=== PATIENT | female | born 1995 | race Caucasian/White ===

== ENCOUNTER 2023-03-04 15:34 | Outpatient (OUT) | payer OTHER, SELFPAY ==
--- NOTE | 2023-03-04 10:57 | US_ITS ---
[address] [address] Patient Name: AZAR EVANS MRN: [id number] date: 1995 Sex: F Assigned Patient Location: US Current Patient Location: US Accession/Order Number: [id number] Exam Date: 03/04/2023 10:58 Report Date: 03/04/2023 12:43 At the request of: RAHUL MAE Procedure: US OB >= 14 weeks Fetus EXAMINATION: US OB >= 14 weeks Fetus HISTORY: MISSED MENSES COMPARISON: No relevant comparison available. TECHNIQUE: Transabdominal sonographic examination was performed for obstetrical and evaluation. FINDINGS: Number: 1 Heart Rate: 147.0 bpm H.B. /min Amniotic Fluid Volume: Subjectively normal Placental Location: Anterior Cervix Length: Not measured BIOMETRY: BPD: 6.4 cm 25 weeks 5 days , 25 weeks 5 days HC: 24.4 cm 26 weeks 3 days, 26 weeks 3 days AC: 21.6 cm 26 weeks 1 days, 26 weeks 1 day FL: 4.9 cm 26 weeks 4 days, 26 weeks 4 days EFW: 912.8 grams 2 lbs. 0 oz.; FL/AC: 22.7 FL/BPD: 77.1 HC/AC: 1.1 GESTATIONAL AGE: Age by EDC: Unknown SABRINA by EDC: Unknown Age by current US: 26 weeks 2 days SABRINA by current US: 06/08/2023 US/US OB >= 14 weeks Fetus IMPRESSION: Andrade intrauterine gestation measuring 26 weeks 2 days *Reference: [facility] Practice Guideline for the performance of Obstetric Ultrasound Examinations, January 16, 2007. Electronically authenticated by: ARVIN BECERRA Date: 03/04/2023 12:43
== END 2023-03-04 15:35 | disposition home or self-care (01) ==
LOC: US 03-07 15:34
PROVIDERS: Visit Provider Obstetrics & Gynecology
DX: Z34.92 Encounter for supervision of normal pregnancy, unspecified, second trimester (principal)
CPT/HCPCS: 76815; 76817

== ENCOUNTER 2023-03-21 10:05 | Outpatient (OUT) | payer OTHER, SELFPAY ==
[2023-03-21 10:50] LABS: Basophils Absolute Auto 0.1 10^3/uL (0.0-0.1); Basophils Percent Auto 0.6 % (0.2-2.0); Eosinophils Absolute Auto 0.2 10^3/uL (0.0-0.7); Eosinophils Percent Auto 2.5 % (0.9-7.0); Hematocrit 28.4 % (36.0-48.0); Hemoglobin 8.9 g/dL (12.0-16.0); Immature Granulocytes Abs Auto 0.09 10^3/uL (0.00-0.03); Immature Granulocytes Pct Auto 1.1 % (0.0-0.5); Lymphocytes Absolute Auto 1.5 10^3/uL (1.2-3.8); Mean Corpuscular HGB Conc 31.3 g/dL (29.9-35.2); Mean Corpuscular Hemoglobin 26.3 pg (26.7-34.0); Mean Platelet Volume 10.1 fL (9.5-13.5); Monocytes Absolute Auto 0.7 10^3/uL (0.3-0.8); Monocytes Percent Auto 7.8 % (1.7-12.0); Platelet Count 304 10^3/uL (150-450); Red Blood Count 3.38 10^6/uL (4.20-5.40); Red Cell Distribution Width 13.1 % (11.0-15.0); White Blood Count 8.6 10^3/uL (4.0-11.0)
[2023-03-21 11:23] LABS: Estimated Average Glucose 100 mg/dL; Glycohemoglobin A1C 5.1 % (4.5-6.2)
[2023-03-21 11:29] LABS: Thyroid Stimulating Hormone 4.453 uIU/mL (0.358-3.740)
[2023-03-21 16:06] LABS: HIV Antigen NON-REACTIVE (NONREACTIVE)
[2023-03-22 06:08] LABS: HBsAg Screen Negative (Negative); HCV Ab Non Reactive (Non Reactive); Rubella Antibodies, IgG <0.90 index (Immune >0.99)
[2023-03-22 14:09] LABS: Rapid Plasma Reagin, Quant Non Reactive titer (NonRea<1:1)
== END 2023-03-21 10:06 | disposition home or self-care (01) ==
LOC: LAB 10:15
PROVIDERS: Visit Provider Obstetrics & Gynecology
DX: N92.6 Irregular menstruation, unspecified (principal)
CPT/HCPCS: 36415; 83036; 84443; 85025; 86592; 86762; 86803; 86850; 86900; 86901; 87086; 87340; 87389

== ENCOUNTER 2023-03-21 16:35 | Outpatient (OUT) | payer OTHER, SELFPAY ==
--- NOTE | 2023-03-21 | US_ITS ---
[address] [address] Patient Name: AZAR EVANS MRN: [id number] date: 1995 Sex: F Assigned Patient Location: [facility] Current Patient Location: Accession/Order Number: [id number] Exam Date: 03/21/2023 16:45 Report Date: 03/22/2023 22:26 At the request of: RAHUL MAE Procedure: US OB anatomy EXAMINATION: US OB anatomy, US OB cervical length HISTORY: SECOND TRIMESTER Z34.92 COMPARISON: Ultrasound OB greater than 14 weeks 03/04/2023 TECHNIQUE: Transabdominal sonographic examination was performed for obstetrical and evaluation. FINDINGS: Number: 1 Heart Rate: 143.6 bpm H.B. /min Amniotic Fluid Volume: Placental Location: Anterior-fundal; lower margin is 5.5 cm from os. Cervix Length: 5.5 cm; closed. ANATOMY: Normal Structures -cerebellum, choroid plexus, cisterna magna, lateral cerebral ventricles, orbits, midline falx, hard palate, four-chamber heart, RVOT, LVOT, stomach, kidneys, bladder, umbilical cord insertion into abdomen, three-vessel cord, cervical spine, thoracic spine, lumbar spine, sacral spine, right upper extremity, left upper extremity, right lower extremity, left lower extremity. SUBOPTIMALLY SEEN: None ABNORMALITIES: None BIOMETRY: BPD: 7.1 cm 28 weeks 4 days ; 33% HC: 26.7 cm 29 weeks 0 days; 27% AC: 23.8 cm 28 weeks 1 days; 25% FL: 5.3 cm 28 weeks 2 days ; 24% EFW:1203.3 grams; 23% FL/AC: 22.4 FL/BPD: 75.0 HC/AC: 1.1 GESTATIONAL AGE: Age by EDC: 28 weeks 5 days SABRINA by EDC: 06/08/2023 Age by current US: 28 weeks 4 days SABRINA by current US: 06/09/2023 US/US OB anatomy IMPRESSION: 1. Single live intrauterine with growth detailed above. Electronically authenticated by: BABAK COTO Date: 03/22/2023 22:26
--- NOTE | 2023-03-21 | US_ITS ---
[address] [address] Patient Name: AZAR EVANS MRN: [id number] date: 1995 Sex: F Assigned Patient Location: [facility] Current Patient Location: Accession/Order Number: [id number] Exam Date: 03/21/2023 16:45 Report Date: 03/22/2023 22:26 At the request of: RAHUL MAE Procedure: US OB cervical length EXAMINATION: US OB anatomy, US OB cervical length HISTORY: SECOND TRIMESTER Z34.92 COMPARISON: Ultrasound OB greater than 14 weeks 03/04/2023 TECHNIQUE: Transabdominal sonographic examination was performed for obstetrical and evaluation. FINDINGS: Number: 1 Heart Rate: 143.6 bpm H.B. /min Amniotic Fluid Volume: Placental Location: Anterior-fundal; lower margin is 5.5 cm from os. Cervix Length: 5.5 cm; closed. ANATOMY: Normal Structures -cerebellum, choroid plexus, cisterna magna, lateral cerebral ventricles, orbits, midline falx, hard palate, four-chamber heart, RVOT, LVOT, stomach, kidneys, bladder, umbilical cord insertion into abdomen, three-vessel cord, cervical spine, thoracic spine, lumbar spine, sacral spine, right upper extremity, left upper extremity, right lower extremity, left lower extremity. SUBOPTIMALLY SEEN: None ABNORMALITIES: None BIOMETRY: BPD: 7.1 cm 28 weeks 4 days ; 33% HC: 26.7 cm 29 weeks 0 days; 27% AC: 23.8 cm 28 weeks 1 days; 25% FL: 5.3 cm 28 weeks 2 days ; 24% EFW:1203.3 grams; 23% FL/AC: 22.4 FL/BPD: 75.0 HC/AC: 1.1 GESTATIONAL AGE: Age by EDC: 28 weeks 5 days SABRINA by EDC: 06/08/2023 Age by current US: 28 weeks 4 days SABRINA by current US: 06/09/2023 US/US OB cervical length IMPRESSION: 1. Single live intrauterine with growth detailed above. Electronically authenticated by: BABAK COTO Date: 03/22/2023 22:26
== END 2023-03-21 16:36 | disposition home or self-care (01) ==
PROVIDERS: Visit Provider Obstetrics & Gynecology
DX: Z34.93 Encounter for supervision of normal pregnancy, unspecified, third trimester (principal); N92.6 Irregular menstruation, unspecified; Z12.4 Encounter for screening for malignant neoplasm of cervix
CPT/HCPCS: 36415; 76805; 76817; 83036; 84443; 85025; 86592; 86762; 86803; 86850; 86900; 86901; 87086; 87340; 87389; G0145

== ENCOUNTER 2023-03-21 22:08 | Outpatient (OUT) | payer OTHER, SELFPAY ==
[2023-03-24 19:07] LABS: Age Gdln ACOG Testing Note (.); IGP, rfx Aptima HPV ASCU Note (.)
== END 2023-03-21 22:09 | disposition home or self-care (01) ==
LOC: LAB 22:10
PROVIDERS: Visit Provider Obstetrics & Gynecology
DX: Z12.4 Encounter for screening for malignant neoplasm of cervix (principal)
CPT/HCPCS: G0145

== ENCOUNTER 2023-03-30 10:11 | Outpatient (OUT) | payer OTHER, SELFPAY ==
[2023-03-30 10:36] LABS: Basophils Percent Auto 0.5 % (0.2-2.0); Eosinophils Absolute Auto 0.2 10^3/uL (0.0-0.7); Eosinophils Percent Auto 2.3 % (0.9-7.0); Hematocrit 30.4 % (36.0-48.0); Hemoglobin 9.3 g/dL (12.0-16.0); Immature Granulocytes Abs Auto 0.21 10^3/uL (0.00-0.03); Immature Granulocytes Pct Auto 2.4 % (0.0-0.5); Lymphocytes Absolute Auto 1.6 10^3/uL (1.2-3.8); Lymphocytes Percent Auto 18.3 % (20.5-60.0); Mean Corpuscular HGB Conc 30.6 g/dL (29.9-35.2); Mean Corpuscular Hemoglobin 26.3 pg (26.7-34.0); Mean Corpuscular Volume 85.9 fL (81.0-99.0); Mean Platelet Volume 9.9 fL (9.5-13.5); Monocytes Absolute Auto 0.6 10^3/uL (0.3-0.8); Monocytes Percent Auto 6.8 % (1.7-12.0); Neutrophils Absolute Auto 6.1 10^3/uL (1.4-6.5); Neutrophils Percent Auto 69.7 % (43.0-75.0); Platelet Count 314 10^3/uL (150-450); Red Blood Count 3.54 10^6/uL (4.20-5.40); Red Cell Distribution Width 13.8 % (11.0-15.0); White Blood Count 8.7 10^3/uL (4.0-11.0)
== END 2023-03-30 10:12 | disposition home or self-care (01) ==
PROVIDERS: Visit Provider Obstetrics & Gynecology
DX: R79.89 Other specified abnormal findings of blood chemistry (principal)
CPT/HCPCS: 36415; 85025

== ENCOUNTER 2023-04-05 09:25 | Outpatient (OUT) | payer OTHER, SELFPAY ==
[2023-04-05 11:03] LABS: Glucose 1 Hour 121 mg/dL
== END 2023-04-05 09:26 | disposition home or self-care (01) ==
LOC: LAB 09:26
PROVIDERS: Visit Provider Obstetrics & Gynecology
DX: R79.89 Other specified abnormal findings of blood chemistry (principal); Z34.90 Encounter for supervision of normal pregnancy, unspecified, unspecified trimester
CPT/HCPCS: 36415; 82950

== ENCOUNTER 2023-04-25 09:22 | Outpatient (OUT) | payer OTHER, SELFPAY ==
--- OUTSIDE RECORDS SUMMARY | 2023-04-25 09:27 | XMS_ITS | CCD ---
Author Name Unknown Address [address] [facility] [address] [place] [address] Organization [facility] Care Team Providers Care Elevator Operator Name Role Phone RAHUL MAE Attending Unavailable Encounters Encounter Date Encounter Type Care Provider Facility Start: 03-21-2023 End: 03-21-2023 ambulatory RAHUL TU Not Available Start: 03-04-2023 End: 03-04-2023 ambulatory RAHUL TU Not Available Payers Date Payer Category Payer Medicaid [id number] 1995 Unknown [id number] 1995 Unknown [id number] [id number] Summary Purpose Family History No Family History Records Found Advance Directives No Advanced Directives Records Found Additional Source Comments INFORMATION SOURCE (unrecogn ized section and content) DATE CREATED AUTHOR 03/23/2023 [facility] Special[facility] EPIC FOR RECORDS PERTAINING TO PATIENTS [...] BE BASED ON THE PRIMARY CLINICAL RECORDS. [employer] provides no warranty or guarantee of the accuracy or completeness of information in this document.
--- NOTE | 2023-04-25 09:28 | US_ITS ---
[address] [address] Patient Name: AZAR EVANS MRN: [id number] date: 1995 Sex: F Assigned Patient Location: US Current Patient Location: US Accession/Order Number: [id number] Exam Date: 04/25/2023 09:35 Report Date: 04/25/2023 10:51 At the request of: JESSICA FLEMING Procedure: US OB growth EXAMINATION: US OB growth HISTORY: excessive growth affecting O36.60 COMPARISON: No relevant comparison available. FINDINGS: Heart Rate: 149.2 bpm Amniotic Fluid Volume: 19.0 cm Number: 1.0 Position: Cephalic presentation, longitudinal lie Maximum Vertical Pocket: 5.7 cm cm 7.2 cm cm 0.5 cm cm 5.7 cm cm BIOMETRY: BPD: 8.0 cm cm; 32 weeks 2 days; 12% HC: 30.4 cmcm; 33 weeks 6 days , 17% AC: 31.0 cm cm; 34 weeks 6 days, 84% FL: 6.6 cm cm; 34 weeks 1 days; 52.1 % % EFW: 2405.1 grams, 5 lbs. 5 oz., 62% FL/AC: 21.4 FL/BPD: 82.5 HC/AC: 1.0 GESTATIONAL AGE: Age by EDC: 33 weeks 5 days SABRINA by EDC: 06/08/2023 Age by US: 33 weeks 6 days SABRINA by US: 06/07/2023 US/US OB growth IMPRESSION: Normal interval growth Electronically authenticated by: ARVIN BECERRA Date: 04/25/2023 10:51
== END 2023-04-25 09:23 | disposition home or self-care (01) ==
LOC: US 09:24
PROVIDERS: Visit Provider Physician Assistant
DX: O36.63X0 Maternal care for excessive fetal growth, third trimester, not applicable or unspecified (principal); Z3A.33 33 weeks gestation of pregnancy; O99.013 Anemia complicating pregnancy, third trimester; D64.9 Anemia, unspecified
CPT/HCPCS: 76816; 96365; J1756

== ENCOUNTER 2023-05-02 07:31 | Outpatient (RCR) | payer OTHER, SELFPAY ==
--- OUTSIDE RECORDS SUMMARY | 2023-04-06 11:23 | XMS_ITS | CCD ---
Author Name Unknown Address [address] [facility] [address] [place] [address] Organization [facility] Care Team Providers Care Cargo Surveyor Name Role Phone RAHUL MAE Attending Unavailable Encounters Encounter Date Encounter Type Care Provider Facility Start: 03-21-2023 End: 03-21-2023 ambulatory RAHUL TU Not Available Start: 03-04-2023 End: 03-04-2023 ambulatory RAHUL TU Not Available Payers Date Payer Category Payer Medicaid [id number] 1995 Unknown [id number] 1995 Unknown [id number] [id number] Summary Purpose Family History No Family History Records Found Advance Directives No Advanced Directives Records Found Additional Source Comments INFORMATION SOURCE (unrecogn ized section and content) DATE CREATED AUTHOR 03/23/2023 [facility] EPIC FOR RECORDS PERTAINING TO PATIENTS WHO ARE OR HAVE BEEN ENROLLED IN A CHEMICAL DEPENDENCY/SUBSTANCEABUSE PROGRAM, SOME INFORMATION MAY BE OMITTED. This clinical summary was aggregated from multiple sources. Caution should be exercised in using it in the provision of clinical care. This summary normalizes information from multiple sources, and as a consequence, information in this document may materially change the coding, format and clinical context of patient data. In addition, data may be omitted in some cases. CLINICAL DECISIONS SHOULD BE BASED ON THE PRIMARY CLINICAL RECORDS. [employer] provides no warranty or guarantee of the accuracy or completeness of information in this document.
--- OUTSIDE RECORDS SUMMARY | 2023-04-13 16:09 | XMS_ITS | CCD ---
Author Name Unknown Address [address] [facility] [address] [place] [address] Organization [facility] Care Team Providers Care Line Haul Driver Name Role Phone RAHUL MAE Attending Unavailable Encounters Encounter Date Encounter Type Care Provider Facility Start: 03-21-2023 End: 03-21-2023 ambulatory RAHUL TU Not Available Start: 03-04-2023 End: 03-04-2023 ambulatory RAHUL TU Not Available Payers Date Payer Category Payer Medicaid [id number] 1995 Unknown [id number] 1995 Unknown [id number] [id number] Summary Purpose Family History No Family History Records Found Advance Directives No Advanced Directives Records Found Additional Source Comments INFORMATION SOURCE (unrecogn ized section and content) DATE CREATED AUTHOR 03/23/2023 [facility] EPIC FOR RECORDS PERTAINING TO PATIENTS [...] BE BASED ON THE PRIMARY CLINICAL RECORDS. [employer] provides no warranty or guarantee of the accuracy or completeness of information in this document.
[2023-04-20 09:23] VITALS: BP 99/50; PULSE 88; RESP 16; TEMP 36.4; O2SAT 95
[2023-04-20] MEDS: IRON SUCROSE COMPLEX 100 MG in 0.9 % SODIUM CHLORIDE 100 ML 420 MG IV (09:27)
--- NOTE | 2023-04-20 09:30 | PC.NURSE ---
0900 arrival ambulatory. alert oriented, however apprehensive regarding need for iron. explained anemia and , patient verbalizes understanding. #24 iv initiated left forearm, excellent blood return. 0920 See mar for infusion, significant other at bedside.
[2023-04-20 09:35] VITALS: BP 96/63; PULSE 85; RESP 18
--- NOTE | 2023-04-20 09:52 | PC.NURSE ---
0948 infusion completed, line flushed with NSS. tolerated infusion with out difficulty. IV site dc'd, cotton ball and pressure applied, followed by suman rose after 10 mins. verbalized understanding.0950 released ambulatory with significant other.
[2023-04-22 09:00] VITALS: BP 97/80; PULSE 97; RESP 16; TEMP 36.6; O2SAT 98
[2023-04-22] MEDS: IRON SUCROSE COMPLEX 100 MG in 0.9 % SODIUM CHLORIDE 100 ML 420 MG IV (09:25)
--- NOTE | 2023-04-22 09:49 | PC.NURSE ---
0900 Arrival ambulatory with significant other. IV attempt x3. patient tolerated poorly, #22 inserted racf, excellent blood return noted. 914 see JUN 929 tolerating infusion, initially was light headed with iv starts, bp recheck 95/55 p 81. 0940 iv infusion completed, flushed line with NSS. dc'd iv site from racf, catheter intact. site clear. band aid, cottonball applied, secured with coban. Released ambulatory.
[2023-04-25 10:35] VITALS: BP 103/52; PULSE 80; RESP 18; TEMP 36.7; O2SAT 96
[2023-04-25] MEDS: IRON SUCROSE COMPLEX 200 MG in 0.9 % SODIUM CHLORIDE 100 ML 220 MG IV (11:01)
--- NOTE | 2023-04-25 11:50 | PC.NURSE ---
Patient is here for Venofer infusion, she denies any complaints. She tolerated her IV start well, infusion well without any issues. She was discharged home ambulatory with significant other.
[2023-04-27] MEDS: IRON SUCROSE COMPLEX 100 MG in 0.9 % SODIUM CHLORIDE 100 ML 420 MG IV (09:09)
--- NOTE | 2023-04-27 09:10 | PC.NURSE ---
0850 Arrival ambulatory. Alert oriented. Iv initiated on 2nd attempt, #24 left forearm, tolerated fairly well. significant other with patient.
[2023-04-27 09:12] VITALS: BP 96/60; PULSE 85; RESP 16; TEMP 36.6; O2SAT 98
[2023-04-29] MEDS: IRON SUCROSE COMPLEX 200 MG in 0.9 % SODIUM CHLORIDE 100 ML 220 MG IV (09:00)
[2023-04-29 09:07] VITALS: BP 119/69; PULSE 88; RESP 18; TEMP 36.6; O2SAT 100
--- NOTE | 2023-04-29 09:11 | PC.NURSE ---
0850 Arrival ambulatory, alert oriented, accompanied by significant other. 0855 IV initiated 22 LACF on 1 attempt, excellent blood return, tolerated well. 0900 Infusion initated, eating breakfast. 0915 Tolerating infusion without difficulty
--- NOTE | 2023-04-29 09:41 | PC.NURSE ---
0930 infusion completed. IV dc'd catheter intact, site clear. Released ambulatory
[2023-05-02 08:55] VITALS: BP 93/52; PULSE 107; RESP 16; TEMP 36.8; O2SAT 99
[2023-05-02] MEDS: IRON SUCROSE COMPLEX 200 MG in 0.9 % SODIUM CHLORIDE 100 ML 220 MG IV (09:13)
== END 2023-05-18 23:59 | disposition home or self-care (01) ==
LOC: INF 07:31
PROVIDERS: Visit Provider Obstetrics & Gynecology
DX: O99.019 Anemia complicating pregnancy, unspecified trimester (principal); D64.9 Anemia, unspecified; Z3A.00 Weeks of gestation of pregnancy not specified
CPT/HCPCS: 96365; J1756

== ENCOUNTER 2023-05-07 14:06 | Observation (INO) | payer OTHER, SELFPAY ==
--- OUTSIDE RECORDS SUMMARY | 2023-05-07 14:09 | XMS_ITS | CCD ---
Author Name Unknown Address [address] [place] [address] [address] [place] [address] Organization [facility] Care Team Providers Care Online Marketing Analyst Name Role Phone JESSICA FLEMING Attending Unavailable RAHUL MAE Attending Unavailable JESSICA FLEMING Attending Unavailable Encounters Encounter Date Encounter Type Care Provider Facility Start: 04-25-2023 End: 04-25-2023 ambulatory JESSICA FLEMING Not Available Start: 04-04-2023 End: 04-04-2023 ambulatory JESSICA FLEMING Not Available Start: 03-21-2023 End: 03-21-2023 ambulatory RAHUL MAE Not Available Start: 03-04-2023 End: 03-04-2023 ambulatory JESSICA FLEMING Not Available Payers Date Payer Category Payer Medicaid [id number] 1995 Unknown [id number] 2.16.840 .[id number] 1995 Unknown [id number] 2.16.840 .[id number] 1995 Unknown [id number] 2.16.840 .[id number] 1995 Unknown [id number] 2.16.840 .[id number] Summary Purpose Family History No Family History Records Found Advance Directives No Advanced Directives Records Found Additional Source Comments INFORMATION SOURCE (unrecogn ized section and content) DATE CREATED AUTHOR 04/25/2023 [facility] EPIC FOR RECORDS PERTAINING TO PATIENTS [...] BE BASED ON THE PRIMARY CLINICAL RECORDS. [facility] [employer] [facility]. provides no warranty or guarantee of the accuracy or completeness of information in this document.
[2023-05-07 14:52] LABS: Bilirubin Urine NEGATIVE (NEGATIVE); Blood Urine NEGATIVE (NEGATIVE); Clarity Urine CLEAR (CLEAR); Color Urine LT. YELLOW (YELLOW); Glucose Urine UA NEGATIVE (NEGATIVE); Ketones Urine NEGATIVE (NEGATIVE); Leukocyte Esterase Urine NEGATIVE (NEGATIVE); Nitrite Urine NEGATIVE (NEGATIVE); Protein Urine NEGATIVE (NEG/TRACE); Specific Gravity Urine <=1.005 (1.005-1.025); Urobilinogen Urine 0.2 EU/dL (0.2-1.0)
[2023-05-07 14:55] LABS: Urine Microscopic Indicated NO
== END 2023-05-07 17:03 | disposition home or self-care (01) ==
PROVIDERS: Admitting Provider Obstetrics & Gynecology; Visit Provider Obstetrics & Gynecology
DX: O26.893 Other specified pregnancy related conditions, third trimester (principal); M54.50 Low back pain, unspecified; Z3A.35 35 weeks gestation of pregnancy
CPT/HCPCS: 81003; G0378; G0379

== ENCOUNTER 2023-05-09 10:49 | Outpatient (OUT) | payer OTHER, SELFPAY ==
--- OUTSIDE RECORDS SUMMARY | 2023-05-09 10:53 | XMS_ITS | CCD ---
Author Name Unknown Address [address] [place] [address] [place] [address] Organization [facility] Care Team Providers Care Performance Improvement Manager Name Role Phone JESSICA FLEMING Attending Unavailable [...] Available Payers Date Payer Category Payer Medicaid [id number] 1995 Unknown [id number] 2.16.840 .[id number] 1995 Unknown [id number] 2.16.840 .[id number] 1995 Unknown [id number] 2.16.840 .[id number] 1995 Unknown [id number] 2.16.840 .[id number] Summary Purpose Family History No Family History Records Found Advance Directives No Advanced Directives Records Found Additional Source Comments INFORMATION SOURCE (unrecogn ized section and content) DATE CREATED AUTHOR 04/25/2023 [facility] EPIC FOR RECORDS PERTAINING [...] BE BASED ON THE PRIMARY CLINICAL RECORDS. [facility] [employer] [facility]. provides no warranty or guarantee of the accuracy or completeness of information in this document.
[2023-05-09 11:03] LABS: Basophils Percent Auto 0.5 % (0.2-2.0); Eosinophils Absolute Auto 0.1 10^3/uL (0.0-0.7); Eosinophils Percent Auto 1.4 % (0.9-7.0); Hematocrit 32.9 % (36.0-48.0); Hemoglobin 10.2 g/dL (12.0-16.0); Immature Granulocytes Abs Auto 0.03 10^3/uL (0.00-0.03); Immature Granulocytes Pct Auto 0.5 % (0.0-0.5); Lymphocytes Absolute Auto 1.4 10^3/uL (1.2-3.8); Lymphocytes Percent Auto 24.2 % (20.5-60.0); Mean Corpuscular Hemoglobin 26.3 pg (26.7-34.0); Mean Corpuscular Volume 84.8 fL (81.0-99.0); Monocytes Absolute Auto 0.6 10^3/uL (0.3-0.8); Monocytes Percent Auto 9.9 % (1.7-12.0); Neutrophils Absolute Auto 3.6 10^3/uL (1.4-6.5); Neutrophils Percent Auto 63.5 % (43.0-75.0); Platelet Count 268 10^3/uL (150-450); Red Blood Count 3.88 10^6/uL (4.20-5.40); Red Cell Distribution Width 20.2 % (11.0-15.0); White Blood Count 5.6 10^3/uL (4.0-11.0)
== END 2023-05-09 10:50 | disposition home or self-care (01) ==
LOC: LAB 10:50
PROVIDERS: Visit Provider Physician Assistant
DX: Z34.93 Encounter for supervision of normal pregnancy, unspecified, third trimester (principal); R79.89 Other specified abnormal findings of blood chemistry
CPT/HCPCS: 36415; 85025

== ENCOUNTER 2023-05-16 21:09 | Outpatient (REF) | payer OTHER, SELFPAY ==
--- OUTSIDE RECORDS SUMMARY | 2023-05-16 21:12 | XMS_ITS | CCD ---
Author Name Unknown Address [address] [place] [address] [place] [address] Organization [facility] Care Team Providers Care Lead Javascript Developer Name Role Phone LONNIE, JESSICA Attending Unavailable LONNIE, JESSICA Attending Unavailable TU, RAHUL Attending Unavailable TU, RAHUL Attending Unavailable LONNIE, JESSICA Attending Unavailable Encounters Encounter Date Encounter Type Care Provider Facility Start: 05-16-2023 End: 05-16-2023 ambulatory RAHUL TU Not Available Start: 05-09-2023 End: 05-09-2023 ambulatory JESSICA LONNIE Not Available Start: 04-25-2023 End: 04-25-2023 ambulatory JESSICA LONNIE Not Available Start: 04-04-2023 End: 04-04-2023 ambulatory JESSICA LONNIE Not Available Start: 03-21-2023 End: 03-21-2023 ambulatory RAHUL TU Not Available Start: 03-04-2023 End: 03-04-2023 ambulatory JESSICA LONNIE Not Available Payers Date Payer Category Payer Unknown [id number] 1995 Unknown [id number] 2.16.84 [id number] 1995 Unknown [id number] 2.16.84 [id number] 1995 Unknown [id number] 2.16.840 .[id number] 1995 Unknown [id number] 2.16.840 .[id number] 1995 Unknown [id number] 2.16.840 .1.307005.3.579.2.1259 1995 Unknown [id number] 2.16.840 .[id number] Summary Purpose Family History No Family History Records Found Advance Directives No Advanced Directives Records Found Additional Source Comments INFORMATION SOURCE (unrecogn ized section and content) DATE CREATED AUTHOR 05/16/2023 [facility] dical Specialists [facility] FOR RECORDS PERTAINING TO PATIENTS WHO ARE [...] BE BASED ON THE PRIMARY CLINICAL RECORDS. [facility] [employer] provides no warranty or guarantee of the accuracy or completeness of information in this document.
== END 2023-05-16 21:10 | disposition home or self-care (01) ==
LOC: LAB 21:09
PROVIDERS: Visit Provider Obstetrics & Gynecology
DX: Z34.93 Encounter for supervision of normal pregnancy, unspecified, third trimester (principal)
CPT/HCPCS: 87081

== ENCOUNTER 2023-05-23 10:35 | Outpatient (OUT) | payer OTHER, SELFPAY ==
--- OUTSIDE RECORDS SUMMARY | 2023-05-23 10:39 | XMS_ITS | CCD ---
Author Name Unknown Address [facility] [address] [place] [address] Organization [facility] Care Team Providers Care Belt Loop Machine Operator Name Role Phone LONNIE, JESSICA Attending Unavailable [...] Available Payers Date Payer Category Payer Unknown [id number] 1995 Unknown [id number] 2.16.84 [id number] 1995 Unknown [id number] 2.16.84 [id number] 1995 Unknown [id number] 2.16.840 .1.017045.3.579.2.1259 1995 Unknown [id number] 2.16.840 .1.642808.3.579.2.1259 1995 Unknown [id number] 2.16.840 .[id number] 1995 Unknown [id number] 2.16.840 .[id number] Summary Purpose Family History No Family History Records Found Advance Directives No Advanced Directives Records Found Additional Source Comments INFORMATION SOURCE (unrecogn ized section and content) DATE CREATED AUTHOR 05/16/2023 [facility] dical Specialists [facility] FOR RECORDS PERTAINING TO PATIENTS WHO ARE [...] BE BASED ON THE PRIMARY CLINICAL RECORDS. [facility] [employer] provides no warranty or guarantee of the accuracy or completeness of information in this document.
--- NOTE | 2023-05-23 10:41 | US_ITS ---
[address] [address] Patient Name: AZAR EVANS MRN: [id number] date: 1995 Sex: F Assigned Patient Location: US Current Patient Location: US Accession/Order Number: [id number] Exam Date: 05/23/2023 10:42 Report Date: 05/23/2023 11:38 At the request of: RAHUL MAE Procedure: US OB growth EXAMINATION: US OB growth HISTORY: excessive growth affecting O36.63X0 COMPARISON: No relevant comparison available. FINDINGS: Heart Rate: 137.1 bpm Amniotic Fluid Volume: 21.7 cm Number: 1.0 Position: Cephalic presentation, longitudinal lie Maximum Vertical Pocket: 3.1 cm cm 9.4 cm cm 3.4 cm cm 5.9 cm cm BIOMETRY: BPD: 8.9 cm cm; 36 weeks 1 days; 32% HC: 31.3 cmcm; 35 weeks 0 days , 47% AC: 34.6 cm cm; 38 weeks 4 days, 88% FL: 7.3 cm cm; 37 weeks 4 days; 49.4 % % EFW: 3255.5 grams, 7 lbs. 7 oz., 71% FL/AC: 21.2 FL/BPD: 82.1 HC/AC: 0.9 GESTATIONAL AGE: Age by EDC: 37 weeks 4 days SABRINA by EDC: 06/09/2023 Age by US: 37 weeks 5 days SABRINA by US: 06/08/2023 US/US OB growth IMPRESSION: Normal interval growth Electronically authenticated by: ARVIN BECERRA Date: 05/23/2023 11:38
== END 2023-05-23 10:36 | disposition home or self-care (01) ==
LOC: US 10:37
PROVIDERS: Visit Provider Obstetrics & Gynecology
DX: O36.63X1 Maternal care for excessive fetal growth, third trimester, fetus 1 (principal); Z3A.37 37 weeks gestation of pregnancy
CPT/HCPCS: 76816

== ENCOUNTER 2023-06-02 | Inpatient (IN) | payer OTHER, SELFPAY ==
[2023-06-02] VITALS (45 sets, daily range): BP systolic 84–164; BP diastolic 42–66; PULSE 73–108; RESP 16–18; TEMP 36.4–36.8
--- OUTSIDE RECORDS SUMMARY | 2023-06-02 00:04 | XMS_ITS | CCD ---
Author Name Unknown Address [address] [facility] [address] [place] [address] Organization [facility] Care Team Providers Care Vp Home Health Name Role Phone Unavailable Primary Care Provider AIDA Turner Attending Unavailable AIDA FLEMING Attending Unavailable RAHUL CHAPIN Attending Unavailable ARHUL CHAPIN Attending Unavailable AIDA FLEMING Attending Unavailable RAHUL CHAPIN Attending Unavailable AIDA FLEMING Attending Unavailable Allergies Allergy Classification Reported Allergen(s) Allergy Type Date of Onset Reaction(s) Facility (4 sources) Sulfamethoxazole / Trimethoprim Drug Allergy 3 [facility] Medications Current Medications Medication Drug Class(es) Dates Sig (Normalized) Sig (Original) levothyroxine sodium 0.05 mg oral tablet (4 sources) l-Thyroxine Start: 03-29-2023 End: 06-27-2023 take 1 tablet by mouth before mealtime levothyroxine (Synthroid) 50 MCG tablet Indications: Hyperthyroidism (CMS/HCC) Take 1 tablet (50 mcg) by mouth in the morning. Take before meals. 90 tablet 0 03/29/2023 06/27/2023 Active Vit-Fe Fumarate-FA ( Plus/Iron) 27-1 MG tablet (4 sources) Start: 03-04-2023 End: 03-03-2024 take 1 tablet by mouth in the morning Vit-Fe Fumarate-FA ( Plus/Iron) 27-1 MG tablet Indications: Missed menses Take 1 tablet by mouth in the morning. 90 tablet 2 03/04/2023 03/03/2024 Active Problems Problem Classification Problem Date Documented Da te Episodic/Chronic Other complications of (2 sources) Excessive growth affecting management of mother; Translations: [Maternal care for excessive growth, third trimester, not applicable or unspecified] 05-23-2023 Episodic Other and delivery including normal (4 sources) Third trimester ; Translations: [Encounter for supervision of normal , unspecified, third trimester] 05-18-2023 Episodic Results Test Name Value Interpretation Reference Range Facil ity Urinalysis macro (dipstick) panel (U)Ordered By: Le Avila on 05-30-2023 Bilirubin, UA Negative Negative - 4(7 0) +++ mg/dL [facility] Blood, UA Negative Negative - 50 Ethan/mcL [facility] Clarity, UA Clear [facility] Color, UA Yellow [facility] Glucose, UA Negative Negative - 1999 (110) ++++ mg/dL [facility] Interpretation and review of laboratory results Abnormal [facility] Ketones, UA Negative Negative - 160( 16) ++++ mg/dL [facility] Leukocytes, UA Moderate Negative - 50 0+++ Nikolai/mcL [facility] Nitrite, UA Negative Negative - Positive [facility] pH, UA 7.0 5 - 9 [facility] Protein, UA Negative Negative - 1999 (20) ++++ mg/dL [facility] Spec Grav, UA 1.020 1 - 1.03 [facility] Urobilinogen, UA 1.0 0.2 - 12 mg/dL [facility] Urinalysis macro (dipstick) panel (U)Ordered By: Le Avila on 05-23-2023 Bilirubin, UA Negative Negative - 4(7 0) +++ mg/dL [facility] Blood, UA Negative Negative - 50 Ethan/mcL [facility] Clarity, UA Clear [facility] Color, UA Yellow [facility] Glucose, UA Negative Negative - 1999 (110) ++++ mg/dL [facility] Interpretation and review of laboratory results Abnormal [facility] Ketones, UA Negative Negative - 160( 16) ++++ mg/dL [facility] Leukocytes, UA Trace Negative - 50 0+++ Nikolai/mcL [facility] Nitrite, UA Negative Negative - Positive [facility] pH, UA 7.0 5 - 9 [facility] Protein, UA Negative Negative - 1999 (20) ++++ mg/dL [facility] Spec Grav, UA 1.010 1 - 1.03 [facility] Urobilinogen, UA 0.2 0.2 - 12 mg/dL [facility] Vital Signs Date Time Vital Sign Value Performing Clinician Marcin almanzar 05-30-2023 08:26-0500 Body weight 63.05 kg Aida LIVINGSTON Work Phone: [facility] 05-30-2023 08:26-0500 Diastolic blood pressure 62 mm[Hg] Aida LIVINGSTON Work Phone: [facility] 05-30-2023 08:26-0500 Systolic blood pressure 102 mm[Hg] Aida LIVINGSTON Work Phone: [facility] 05-23-2023 09:58-0500 Body weight 62.6 kg Rahul Dari DO Work Phone: [facility] 05-23-2023 09:58-0500 Diastolic blood pressure 60 mm[Hg] Rahul Dari DO Work Phone: [facility] 05-23-2023 09:58-0500 Systolic blood pressure 102 mm[Hg] Rahul Dari DO Work Phone: [facility] Encounters Encounter Date Encounter Type Care Provider Facility Start: 05-30-2023 End: 05-30-2023 ambulatory AIDA LONNIE Not Available Start: 05-30-2023 End: 05-30-2023 Office outpatient visit 15 minutes Aida LIVINGSTON Work Phone: [facility] Comment on above: Third trimester preg william Start: 05-23-2023 End: 05-23-2023 ambulatory RAHUL DARI Not Available Start: 05-23-2023 End: 05-23-2023 Office outpatient visit 15 minutes Rahul Dari DO Work Phone: [facility] Comment on above: Excessive grow th affecting management of in third trimester, single or unspecified fetus (Primary Dx); Third trimester Start: 05-16-2023 End: 05-16-2023 ambulatory RAHUL DARI Not Available Start: 05-09-2023 End: 05-09-2023 ambulatory AIDA LONNIE Not Available Start: 04-25-2023 End: 04-25-2023 ambulatory AIDA LONNIE Not Available Start: 04-04-2023 End: 04-04-2023 ambulatory AIDA FLEMING Not Available Start: 03-21-2023 End: 03-21-2023 ambulatory RAHUL DARI Not Available Start: 03-04-2023 End: 03-04-2023 ambulatory AIDA FLEMING Not Available Procedures Date Procedure Procedure Detail Performing Clinician Start: 05-30-2023 Urnls dip stick/tabl et rgnt non-auto w/o micrscp Aida Fleming PA Work Phone: Start: 05-23-2023 Urnls dip stick/tabl et rgnt non-auto w/o micrscp Rahul Dari DO Work Phone: Plan of Treatment Date Care Activity Detail Author Start: 05-30-2023 End: 05-30-2023 Patient encounter procedure 05/30/2023 8:30 AM EST Routine [facility] [address] [id number] Aida Fleming PA [address] [place] [address] [facility] Start: 05-23-2023 End: 05-23-2024 US for US OB SCAN FOR GROWTH Imaging Routine Excessive growth affecting management of in third trimester, single or unspecified fetus Expected: 05/23/2023 (Approximate), Expires: 05/23/2024 [facility] Work Phone: Comment on above: Expected: 05/23/2023 (Approximate), Expires: 05/23/2024 Payers Date Payer Category Payer Medicaid [facility] MEDICAID [facility] MEDICAID [id number] 2023-Present [address] [place] [address] [id number] 2023 Medicaid [id number] 2023 Unknown [facility] MEDICAID [id number] 2023-Present [address] [place] [address] [id number] 1997 Unknown [id number] 1997 Unknown [id number] 1997 Unknown [id number] 1997 Unknown [id number] 1997 Unknown [id number] 1997 Unknown [id number] 1997 Unknown [id number] 1997 Unknown [id number] Social History Date Type Detail Facility Tobacco smoking stat [facility] Tobacco smoking consumption unknown [facility] Start: 09-15-2022 [facility] Start: 1997 Sex Assigned At Not on file [facility] Gender identity Not on file [facility] History of Present illness Narrative 05-30-2023 MIKI Wolfe - 05/30/2023 8:30 AM EST Note Date & Type Note Facility 05-30-2023 History of Presen t illness Narrative Reason for Appointment: Patient ID: Azar Palacios is a 28 y.o. female who presents for Routine Visit Patient presents today for Return OB appointment. Current Medications: has a current medication list which includes the following prescription(s): levothyroxine and plus/iron. Medical History: Active Ambulatory Problems Diagnosis Date Noted No Active Ambulatory Problems Resolved Ambulatory Problems Diagnosis Date Noted No Resolved Ambulatory Problems No Additional Past Medical History No family history on file. Social History Tobacco Use Smoking status: Not on file Smokeless tobacco: Not on file Substance Use Topics Alcohol use: Not on file Drug use: Not on file History reviewed. No pertinent surgical history. Allergies Allergen Reactions Bactrim [Sulfamethoxazole-Trimethoprim] Review of Systems: Review of Systems Constitutional: Negative. HENT: Negative. Eyes: Negative. Respiratory: Negative. Cardiovascular: Negative. Gastrointestinal: Negative. Musculoskeletal: Negative. Skin: Negative. Neurological: Negative. Psychiatric/Behavioral: Negative. All other systems reviewed and are negative. Hematological: Negative. Endocrine: Negative. Objective Physical Exam Constitutional: Appearance: Normal appearance. She is normal weight. HENT: Head: Normocephalic. Cardiovascular: Rate and Rhythm: Normal rate. Pulses: Normal pulses. Pulmonary: Effort: Pulmonary effort is normal. Breath sounds: Normal breath sounds. Abdominal: Palpations: Abdomen is soft. Musculoskeletal: General: Normal range of motion. Neurological: General: No focal deficit present. Mental Status: She is alert and oriented to person, place, and time. Psychiatric: Mood and Affect: Mood normal. Behavior: Behavior normal. Thought Content: Thought content normal. Judgment: Judgment normal. Vitals and nursing note reviewed. Vitals: There is no height or weight on file to calculate BMI. BP: 102/62 No LMP recorded (lmp unknown). Patient is . Assessment/Plan Encounter Diagnosis Name Primary? Third trimester Patient presents today for a routine obstetrics appointment. Patient is currently 38w5d with a Estimated Date of Delivery: 06/08/23. Patient presents today for a routine obstetrics appointment. Patient is currently 38w5d . Patient states she is doing well but has complaints of being tired due to current . Patient has verbalizes frequent movement. labor precautions was discussed/given and patient was instructed to perform kick counts three times a day. Follow Up: Patient is to return to office in 1 week for routine OB appointment. Documented by MIKI Wolfe on behalf of: MIKI Wolfe documented in this encounter [facility] History of Present illness Narrative 05-23-2023 MIKI Wolfe - 05/23/2023 9:20 AM EST Note Date & Type Note Facility 05-23-2023 History of Presen t illness Narrative Reason for Appointment: Patient ID: Azar Palacios is a 28 y.o. female who presents for Routine Visit Patient presents today for Return OB appointment. Patient presents today for a routine obstetrics appointment. Patient is currently 37w5d with a Estimated Date of Delivery: 06/08/23. Current Medications: has a current medication list which includes the following prescription(s): levothyroxine and plus/iron. Medical History: Active Ambulatory Problems Diagnosis Date Noted No Active Ambulatory Problems Resolved Ambulatory Problems Diagnosis Date Noted No Resolved Ambulatory Problems No Additional Past Medical History No family history on file. Social History Tobacco Use Smoking status: Not on file Smokeless tobacco: Not on file Substance Use Topics Alcohol use: Not on file Drug use: Not on file History reviewed. No pertinent surgical history. Allergies Allergen Reactions Bactrim [Sulfamethoxazole-Trimethoprim] Review of Systems: Review of Systems Constitutional: Negative. HENT: Negative. Eyes: Negative. Respiratory: Negative. Cardiovascular: Negative. Gastrointestinal: Negative. Genitourinary: Negative. Musculoskeletal: Negative. Skin: Negative. Neurological: Negative. All other systems reviewed and are negative. Hematological: Negative. Endocrine: Negative. Allergic/Immunologic: Negative. Objective Physical Exam Constitutional: Appearance: Normal appearance. She is normal weight. HENT: Head: Normocephalic. Cardiovascular: Rate and Rhythm: Normal rate. Pulses: Normal pulses. Pulmonary: Effort: Pulmonary effort is normal. Breath sounds: Normal breath sounds. Abdominal: Palpations: Abdomen is soft. Musculoskeletal: General: Normal range of motion. Neurological: General: No focal deficit present. Mental Status: She is alert and oriented to person, place, and time. Psychiatric: Mood and Affect: Mood normal. Behavior: Behavior normal. Thought Content: Thought content normal. Judgment: Judgment normal. Vitals and nursing note reviewed. Vitals: There is no height or weight on file to calculate BMI. BP: 102/60 No LMP recorded (lmp unknown). Patient is . Assessment/Plan Encounter Diagnoses Name Primary? Third trimester Excessive growth affecting management of in third trimester, single or unspecified fetus Yes Patient presents today for a routine obstetrics appointment. Patient is currently 37w5d . Patient states she is doing well but has complaints of being tired due to current . Patient has verbalizes frequent movement. labor precautions was discussed/given and patient was instructed to perform kick counts three times a day. Follow Up: Patient is to return to office in 1 week for routine OB appointment. Documented by MIKI Wolfe on behalf of: Rahul Chapin DO documented in this encounter [facility] Evaluation note Note Date & Type Note Facility Evaluation note Diagnosis Excessive growth affecting management of in third trimester, single or unspecified fetus- Primary Third trimester state, incidental documented in this encounter [facility] Evaluation note Note Date & Type Note Facility Evaluation note Diagnosis Third trimester state, incidental documented in this encounter [facility] Summary Purpose Family History No Family History Records Found Advance Directives No Advanced Directives Records Found Additional Source Comments Reason for Visit (unrecogniz ed section and content) Reason Comments Routine Visit INFORMATION SOURCE (unrecogn ized section and content) DATE CREATED AUTHOR 05/30/2023 [facility] FOR RECORDS PERTAINING TO PATIENTS WHO ARE [...] BE BASED ON THE PRIMARY CLINICAL RECORDS. [facility]. provides no warranty or guarantee of the accuracy or completeness of information in this document.
--- OUTSIDE RECORDS SUMMARY | 2023-06-02 00:14 | XMS_ITS | CCD ---
Author Name Unknown Address [address] [facility] [address] [place] [address] Organization [facility] Care Team Providers Care Environmental Health Manager Name Role Phone Unavailable Primary Care Provider AIDA Turner Attending Unavailable AIDA FLEMING Attending Unavailable RAHUL CHAPIN Attending Unavailable RAHUL CHAPIN Attending Unavailable AIDA [...] Negative Negative - 1999 (110) ++++ mg/dL [facility] Interpretation and review of laboratory results Abnormal [facility] Ketones, UA Negative Negative - 160( 16) ++++ mg/dL [facility] Leukocytes, UA Moderate Negative - 50 0+++ Nikolai/mcL [facility] Nitrite, UA Negative Negative - Positive [facility] pH, UA 7.0 5 - 9 [facility] Protein, UA Negative Negative - 1999 (20) ++++ mg/dL [facility] Spec Grav, UA 1.020 1 - 1.03 [facility] Urobilinogen, UA 1.0 0.2 - 12 mg/dL [facility] Urinalysis macro (dipstick) panel (U)Ordered By: Le Avila on 05-23-2023 Bilirubin, UA Negative Negative - 4(7 0) +++ mg/dL [facility] Blood, UA Negative Negative - 50 Ethan/mcL [facility] Clarity, UA Clear [facility] Color, UA Yellow [facility] Glucose, UA Negative Negative - 1999 (110) ++++ mg/dL [facility] Interpretation and review of laboratory [...] weight 63.05 kg Aida LIVINGSTON Work Phone: [facility] 05-30-2023 08:26-0500 Diastolic blood pressure 62 mm[Hg] Aida LIVINGSTON Work Phone: [facility] 05-30-2023 08:26-0500 Systolic blood pressure 102 mm[Hg] Aida LIVINGSTON Work Phone: [facility] 05-23-2023 09:58-0500 Body weight 62.6 kg Rahul Dari DO Work Phone: [facility] 05-23-2023 09:58-0500 Diastolic blood pressure 60 mm[Hg] Rahul Dari DO Work Phone: [facility] 05-23-2023 09:58-0500 Systolic blood pressure 102 mm[Hg] Rahul Dari DO Work Phone: [facility] Encounters Encounter Date Encounter Type Care Provider Facility Start: 05-30-2023 End: 05-30-2023 ambulatory AIDA LONNIE Not Available Start: 05-30-2023 End: 05-30-2023 Office outpatient visit 15 minutes Aida LIVINGSTON Work Phone: [facility] Comment on above: Third trimester preg william Start: 05-23-2023 End: 05-23-2023 ambulatory RAHUL DARI Not Available Start: 05-23-2023 End: 05-23-2023 Office outpatient visit 15 minutes Rahul Dari DO Work Phone: [facility] Comment on above: Excessive [...] AM EST Routine [facility] [address] [place] [phone] Aida Fleming PA [address] [place] [address] [facility] Start: 05-23-2023 End: 05-23-2024 US for US OB SCAN FOR GROWTH Imaging Routine Excessive growth affecting management of in third trimester, single or unspecified fetus Expected: 05/23/2023 (Approximate), Expires: 05/23/2024 [facility] Work Phone: Comment on above: Expected: 05/23/2023 (Approximate), Expires: 05/23/2024 Payers Date Payer Category Payer Medicaid [facility] MEDICAID [facility] MEDICAID [id number] 2023-Present [address] [place] [address] [id number] 2023 Medicaid [id number] 2023 Unknown [facility] MEDICAID [id number] 2023-Present [address] [place] [address] [id number] 1997 Unknown [id number] 1997 Unknown [id number] 1997 Unknown [id number] 1997 Unknown [id number] 1997 Unknown [id number] 1997 Unknown [id number] 1997 Unknown [id number] 1997 Unknown [id number] Social History Date Type Detail Facility Tobacco smoking stat [facility] Tobacco smoking consumption unknown [facility] Start: [...] section and content) DATE CREATED AUTHOR 05/30/2023 [facility] FOR RECORDS PERTAINING TO PATIENTS WHO ARE [...] BE BASED ON THE PRIMARY CLINICAL RECORDS. [facility] [employer] [facility]. provides no warranty or guarantee of the accuracy or completeness of information in this document.
[2023-06-02 00:54] LABS: Hematocrit 34.8 % (36.0-48.0); Hemoglobin 11.2 g/dL (12.0-16.0); Mean Corpuscular HGB Conc 32.2 g/dL (29.9-35.2); Mean Corpuscular Hemoglobin 26.7 pg (26.7-34.0); Mean Corpuscular Volume 82.9 fL (81.0-99.0); Mean Platelet Volume 10.6 fL (9.5-13.5); Platelet Count 234 10^3/uL (150-450); Red Cell Distribution Width 19.9 % (11.0-15.0)
[2023-06-02] MEDS: 0.9 % SODIUM CHLORIDE 1,000 ML 125 ML IV ×2 (00:56→05:07)
[2023-06-02] MEDS: OXYTOCIN 10 UNIT in 0.9 % SODIUM CHLORIDE 500 ML 6.012 UNIT IV (00:58)
[2023-06-02] MEDS: ONDANSETRON PF 4 MG/2 ML VIAL IV (01:43)
[2023-06-02 05:53] LABS: Amphetamine Screen Urine NEGATIVE (NEGATIVE); Barbiturates Screen Urine NEGATIVE (NEGATIVE); Benzodiazepines Screen Urine NEGATIVE (NEGATIVE); Buprenorphine Screen Urine NEGATIVE (NEGATIVE); Cannabinoid Screen Urine NEGATIVE (NEGATIVE); Cocaine Screen Urine NEGATIVE (NEGATIVE); Methadone Screen Urine NEGATIVE (NEGATIVE); Methamphetamines Screen Urine NEGATIVE (NEGATIVE); Opiate Screen Urine NEGATIVE (NEGATIVE); Oxycodone Screen Urine NEGATIVE (NEGATIVE); Phencyclidine Screen Urine NEGATIVE (NEGATIVE); Tricyclic Antidepressant Urine NEGATIVE (NEGATIVE)
[2023-06-02] MEDS: 0.9 % SODIUM CHLORIDE 1,000 ML 999 ML IV ×2 (09:22→11:36)
[2023-06-02] MEDS: ROPIVACAINE HCL/PF 400 MG/200 ML PREMIX 10 MG EPIDURAL (11:44)
--- NOTE | 2023-06-02 13:53 | PM.OBPRCVD ---
Procedure events: Labor Induction Intrapartal events: None Induction method: per pitocin protocol Delivery augmentation: rupture of membranes and pitocin Delivery monitor: external FHT and external uterine Route of delivery: Laceration description: perineal - 1st degree Delivery repair: Vicryl Estimated blood loss (mL): 200 Anesthesia type: Epidural Disposition: PACU Delivery date: 06/02/23 Gender: female presentation: vertex Placental delivery description: Spontaneous cord description: 3 Vessels
[2023-06-02] MEDS: OXYTOCIN/0.9 % SODIUM CHLORIDE 20 UNITS/1,000 ML PLAST..BAG 125 UNIT IV (14:01)
[2023-06-02] MEDS: BENZOCAINE/MENTHOL 85 GRAM SPRAY BOTTLE 1 APPLIC TOPICAL (17:28)
[2023-06-02] MEDS: ONDANSETRON 4 MG RAPDIS TABLET SL (17:28)
[2023-06-02] MEDS: IBUPROFEN 600 MG TABLET PO (18:35)
[2023-06-02] MEDS: ACETAMINOPHEN 325 MG TABLET 650 MG PO (21:15)
[2023-06-03] MEDS: IBUPROFEN 600 MG TABLET PO (02:22)
[2023-06-03 04:45] VITALS: RESP 16; TEMP 36.7
[2023-06-03 04:55] VITALS: BP 98/55; PULSE 74
[2023-06-03] MEDS: ACETAMINOPHEN 325 MG TABLET 650 MG PO ×2 (04:55→12:24)
[2023-06-03 06:19] LABS: Basophils Percent Auto 0.3 % (0.2-2.0); Eosinophils Absolute Auto 0.1 10^3/uL (0.0-0.7); Eosinophils Percent Auto 0.9 % (0.9-7.0); Hemoglobin 10.7 g/dL (12.0-16.0); Immature Granulocytes Abs Auto 0.11 10^3/uL (0.00-0.03); Immature Granulocytes Pct Auto 1.2 % (0.0-0.5); Lymphocytes Absolute Auto 1.4 10^3/uL (1.2-3.8); Lymphocytes Percent Auto 15.2 % (20.5-60.0); Mean Corpuscular HGB Conc 32.4 g/dL (29.9-35.2); Mean Corpuscular Hemoglobin 27.1 pg (26.7-34.0); Mean Corpuscular Volume 83.5 fL (81.0-99.0); Mean Platelet Volume 11.4 fL (9.5-13.5); Monocytes Absolute Auto 0.8 10^3/uL (0.3-0.8); Monocytes Percent Auto 8.3 % (1.7-12.0); Neutrophils Percent Auto 74.1 % (43.0-75.0); Platelet Count 170 10^3/uL (150-450); Red Blood Count 3.95 10^6/uL (4.20-5.40); Red Cell Distribution Width 20.1 % (11.0-15.0); White Blood Count 9.5 10^3/uL (4.0-11.0)
--- NOTE | 2023-06-03 07:10 | W.PC.ACHO ---
Registration Status: ADM IN Primary Language: Venezuelan Preferred Language: Venezuelan Report given to Dalila Merritt at 0700. Active Medications Generic Name Dose Route Start Last Admin Trade Name Penny PRN Reason Stop Dose Admin Acetaminophen 650 mg 06/02/23 13:55 06/03/23 04:55 Acetaminophen 325 Mg Tablet PO 650 mg Q6H PRN Administration Mild Pain Al Hydroxide/Mg Hydroxide 2,400 mg 06/02/23 13:55 Magnesium Hydroxide 2,400 Mg/10 Ml Oral.Susp PO Q6H PRN Dyspepsia Benzocaine/Menthol 1 applic 06/02/23 13:55 06/02/23 17:28 Benzocaine/Menthol 85 Gram Catarina Bottle TOPICAL 1 applic Q2H PRN Administration Pain Carboprost Tromethamine 250 mcg 06/02/23 00:03 Carboprost Tromethamine 250 Mcg/Ml 1 Ml Vial IM 06/04/23 00:04 Q15M PRN Bleeding Diphtheria/Pertussis/Tetanus Vacc 0.5 ml 06/04/23 09:00 Adacel Diph,Pertuss(Acell),Tet Vac/Pf 0.5 Ml Adult Syringe IM 06/04/23 09:01 .ONCE ONE Docusate Sodium 100 mg 06/03/23 09:00 Docusate Sodium 100 Mg Capsule PO BID ABIMAEL Fentanyl Citrate 100 mcg 06/02/23 00:13 Fentanyl Citrate/Pf 100 Mcg/2 Ml Vial EPIDURAL ONCE PRN epidural Fentanyl Citrate 100 mcg 06/02/23 00:13 Fentanyl Citrate/Pf 100 Mcg/2 Ml Vial EPIDURAL ONCE PRN epidural Sodium Chloride 1,000 mls @ 125 mls/hr 06/02/23 00:30 06/02/23 17:50 Sodium Chloride 0.9% 1,000 Ml IV Infused .Q8H ABIMAEL Infusion Oxytocin 10 unit/ Sodium 501 mls @ 6.012 mls/hr 06/02/23 00:15 06/02/23 13:45 Chloride IV Infused Q24H ABIMAEL Infusion 2 MILLIUNIT/MIN Ropivacaine/Sodium Chloride 400 mg in 200 mls @ 10 mls/hr 06/02/23 11:45 06/02/23 11:44 Naropin 0.2% 400 Mg/200 Ml Bag EPIDURAL 10 mls/hr Q24H ABIMAEL Administration Ibuprofen 600 mg 06/02/23 13:55 06/03/23 02:22 Ibuprofen 600 Mg Tablet PO 600 mg Q6H PRN Administration Moderate Pain Lidocaine 5 ml 06/02/23 00:03 Lidocaine Viscous 2% 15 Ml Solution TOPICAL ONCE PRN Pain Lidocaine 1 ml 06/02/23 00:03 Lidocaine Hcl 1% 200 Mg/20 Ml Mdv INJ ONCE PRN Pain Measles/Mumps/Rubella Vaccine Live 0.5 ml 06/04/23 09:00 Measles,Mumps,Rubella Vacc/Pf 0.5 Ml Vial SQ 06/04/23 09:01 .ONCE ONE Methylergonovine Maleate 0.2 mg 06/02/23 00:03 Methylergonovine Maleate 0.2 Mg/Ml Ampule IM 06/04/23 00:04 ONCE PRN Uterine Contractility/Contract Methylergonovine Maleate 0.2 mg 06/02/23 00:03 Methylergonovine Maleate 0.2 Mg Tablet PO 06/04/23 00:04 Q4H PRN Uterine Contractility/Contract Misoprostol 600 mcg 06/02/23 00:03 Misoprostol 100 Mcg Tablet PO 06/04/23 00:04 ONCE PRN Uterine Bleeding Misoprostol 800 mcg 06/02/23 00:03 Misoprostol 100 Mcg Tablet SL 06/04/23 00:04 ONCE PRN Uterine Bleeding Misoprostol 1,000 mcg 06/02/23 00:03 Misoprostol 100 Mcg Tablet UT 06/04/23 00:04 ONCE PRN Uterine Bleeding Ondansetron HCl 4 mg 06/02/23 00:03 06/02/23 01:43 Ondansetron Pf 4 Mg/2 Ml Vial IV 4 mg Q6H PRN Administration Nausea And Vomiting Ondansetron HCl 4 mg 06/02/23 00:03 06/02/23 17:28 Ondansetron 4 Mg Rapdis Tablet SL 4 mg Q6H PRN Administration Nausea And Vomiting Oxytocin 10 unit 06/02/23 00:03 Oxytocin 10 Unit/Ml Vial IM 06/04/23 00:04 ONCE PRN Bleeding Senna 17.2 mg 06/02/23 20:00 Sennosides 8.6 Mg Tablet PO QHS PRN Constipation Simethicone 80 mg 06/02/23 13:55 Simethicone 80 Mg Tab.Chew PO QID PRN Abdominal Distention Temazepam 15 mg 06/02/23 20:00 Temazepam 15 Mg Capsule PO QHS PRN Sleep Witch Meche/Glycerin 1 pad 06/02/23 13:55 Glycerin/Witch Meche Pads TOPICAL Q2H PRN Pain Diet Category Date Time Status Regular Consistency Diet Diet 06/02/23 13:55 Active Respiratory Oxygen Delivery Method Room Air Oxygen Delivery Method Room Air Oxygen Delivery Method Room Air Oxygen Delivery Method Room Air Oxygen Delivery Method Room Air Oxygen Delivery Method Room Air Oxygen Delivery Method Room Air Oxygen Delivery Method Room Air Oxygen Delivery Method Room Air Oxygen Delivery Method Room Air Bowels Bowel Pattern Diarrhea Bowel Pattern Diarrhea Bowel Pattern Diarrhea Bowel Pattern Diarrhea Bowel Pattern Diarrhea Bowel Pattern Diarrhea Bowel Pattern Diarrhea Bowel Pattern Diarrhea Bowel Pattern Diarrhea Bowel Pattern Diarrhea Renal Bladder Pattern Continent Bladder Pattern Continent
[2023-06-03 07:20] VITALS: BP 106/61; PULSE 64; RESP 16; TEMP 37.3
[2023-06-03] MEDS: LEVOTHYROXINE SODIUM 25 MCG TABLET 50 MCG PO (08:50)
--- NOTE | 2023-06-03 09:48 | PM.OBPN ---
OB - PN: Subj Subjective Patient comments: no complaints and pain well controlled [place] status: doing well Exam Constitutional Vital Signs, click to edit/add: Last Vital Signs Temp 99.1 F 06/03/23 07:20 Pulse 64 06/03/23 07:20 Resp 16 06/03/23 07:20 BP 106/61 06/03/23 07:20 O2 Del Method Room Air 06/03/23 07:45 Documenting provider has reviewed patient's vital signs: yes Common normals: no apparent distress Respiratory Common normals: clear to auscultation bilaterally Cardio Common normals: regular rate and regular rhythm GI Common normals: Normal to inspection, nondistended, normoactive bowel sounds present Extremity Common normals: no clubbing, cyanosis or edema Results Labs Labs: Short CBC 06/03/23 Range/Units 05:49 WBC 9.5 (4.0-11.0) 10^3/uL Hgb 10.7 L (12.0-16.0) g/dL Hct 33.0 L (36.0-48.0) % Plt Count 170 (150-450) 10^3/uL OB - PN: A/P Plan - Vaginal Delivery day: 1 Plan: routine care, discharge home and follow up 6 weeks Time Spent with Patient Time: Total time spent is greater than 50% in coordination of care (as documented) at patient's floor/unit and/or counseling patient: Total time spent with greater than 50% in coordination of care (as documented) at patient's floor/unit and/or counseling patient: less than 15 minutes
== END 2023-06-03 18:25 | disposition home or self-care (01) | DRG 560 ==
PROVIDERS: Admitting Provider Obstetrics & Gynecology; Visit Provider Obstetrics & Gynecology
DX: O99.284 Endocrine, nutritional and metabolic diseases complicating childbirth (principal); E03.9 Hypothyroidism, unspecified; O70.0 First degree perineal laceration during delivery; Z3A.39 39 weeks gestation of pregnancy; Z37.0 Single live birth
CPT/HCPCS: 36415; 59050; 59410; 80307; 85025; 85027; 86850; 86900; 86901; 96365; 96366; 96375; 96376; J2405; J2590; J2795; Q0162